=== PATIENT | male | born 1960 | race Caucasian/White ===

== ENCOUNTER 2023-02-21 13:54 | Day surgery (SDC) | payer BC, OTHER ==
[2023-02-20 08:26] VITALS: BMI 42.4
[2023-02-21] MEDS ORDERED: SODIUM CHLORIDE 0.9% 1,000 ML IV ONE (15:15)
[2023-02-21] MEDS ORDERED: fentaNYL (PF) 50 MCG/ML 2 ML AMP ONE (15:27)
[2023-02-21] MEDS ORDERED: MIDAZOLAM 2 MG/2 ML VIAL ONE (15:27)
[2023-02-21] MEDS ORDERED: ISOPROTERENOL 250 MCG/1.25 ML SYR IV ONE (15:27)
[2023-02-21] MEDS ORDERED: HEPARIN SODIUM (1,000 UNIT/ML) 1,000 UNIT in SODIUM CHLORIDE 0.9% 1,000 ML IRRIGATION ONE (15:35)
[2023-02-21] MEDS ORDERED: LIDOCAINE 1% INJ 10MG/ML (30 ML VIAL-PF) SQ ONE ×2 (15:55)
[2023-02-21] MEDS ORDERED: LIDOCAINE 1% INJ 10MG/ML (20 ML MDV) ONE (16:28)
[2023-02-21] MEDS ORDERED: LIDOCAINE 1% INJ 10MG/ML (20 ML MDV) SQ ONE (16:34)
[2023-02-21] MEDS ORDERED: ACETAMINOPHEN TAB 325 MG TAB PO PRN (18:32)
[2023-02-21] MEDS ORDERED: ACETAMINOPHEN IV (For NPO) 1,000 MG in EMPTY BAG 1 BAG IVPB ONE (18:32)
--- NOTE | 2023-02-21 18:39 | P.EPPROC ---
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 Written informed consent was obtained prior to the procedure. The right and left groins were prepped and draped as a protocol. 1% lidocaine was used for local anesthesia. Venous sheaths were placed in the right left femoral veins. Diagnostic catheters were positioned in the high right atrium, His bundle area right ventricle and coronary sinus Diagnostic EP study performed. Sinus cycle length 10/23/2008 milliseconds, MS interval 166 ms, QRS 110 ms and QT 489 ms AH 116 ms and HV 58 ms Sinus recovery times at 605 100 ms were 2043 and 1682 ms. Corresponding caretta sinus recovery times were prolonged AV node Wenckebach block for 50 ms VA Wenckebach block 390 ms Parahisian pacing revealed tammie response SVT was induced and pacing from the high right atrium at 400 ms Short septal times of less than 40 ms VAAV response noted with a long PPI consistent with AV tammie reentry 3-D electro-anatomic mapping was performed. An irrigated tip catheter was used the His bundle was tagged, coronary sinus os was tagged along with the floor and the roof The slow pathway was mapped This was a long procedure. RF ablations around the coronary sinus os resulted in slow junctional rhythm. However despite successful ablation of the sites just outside the coronary sinus os to the floor, and junctional rhythm obtained during thermal delivery, the slow pathway persisted and AV tammie reentry was very easily inducible This was a long procedure and stepwise ablation was performed off the coronary sinus os anteriorly, just outside the coronary sinus anteriorly, along the floor of the coronary sinus and finally in the roof of the coronary sinus At all sites close to the coronary sinus slow junctional rhythm was obtained but the patient continued to have tachycardia until the roof was also ablated and thereafter he did not have any further inducible AV tammie reentry He was then tested on high-dose Isuprel from multiple sites with straight pacing burst pacing and extra stimulation after double extra stimuli On high-dose Isuprel only single echo beats were noted without induction of SVT His MS interval remained stable He tolerated the procedure well without any acute complications Groins venous punctures was sealed with Vascade
--- NOTE | 2023-02-21 18:41 | P.PRLE ---
RE: Gasper Salinas Dear Margie Salinas underwent a diagnostic EP study and successful ablation of the slow pathway for the treatment of AV tammie reentry Hopefully he has no further episodes of SVT. He tolerated the procedure well and was noninducible at the end of the procedure Thank you for entrusting me with the care of the patient Warm regards Sincerely Valentin Mae
[2023-02-21] MEDS ORDERED: ASPIRIN 81 MG PO SCH (21:00)
--- NOTE | 2023-02-22 08:03 | P.DS ---
Providers Attending physician: Valentin Mae Primary care physician: Jn Mota [place] Hospital Course: Patient is doing well. No chest discomfort dizziness lightheadedness Mild tenderness in both groin but no hematoma no swelling On examination blood pressure 108/70. His mercury pulse rate in the 50s afebrile Normal heart sounds normal S1 normal S2 no murmurs or gallops Impression Recurrent SVT, AV tammie reentry Diagnostic EP study revealed AV tammie reentry Successful ablation of the slow pathway rendering the SVT noninducible In order to eliminate the SVT and rendered noninducible both the fluoroscopy of the coronary sinus, just outside the office as well as the roof of the coronary sinus had to be ablated Every site produced slow junctional rhythm in response to RF and yet it took stepwise ablation of both these sites to eliminate SVT Patient tolerated the procedure well without any acute complications Plan Discharge home today the patient is stable and likely will follow-up with Dr. Esparza in a week to 10 days Plan - Discharge Summary New Discharge Prescriptions: Continue RX: Vitamin C/Biotin [Hair, Skin and Nails Chew] 1 tab PO DAILY RX: Multivitamins, Thera [Multivitamin (formulary)] 1 tab PO DAILY Vitamin B (Unknown Dose) 1 dose PO DAILY Vitamin D (Unknown Dose) 1 dose PO DAILY RX: Aspirin [Adult Low Dose Aspirin EC] 81 mg PO HS Discharge Medication List RX: Aspirin [Adult Low Dose Aspirin EC] 81 mg PO HS 02/20/23 [History] RX: Multivitamins, Thera [Multivitamin (formulary)] 1 tab PO DAILY 02/20/23 [History] RX: Vitamin C/Biotin [Hair, Skin and Nails Chew] 1 tab PO DAILY 02/20/23 [History] Vitamin B (Unknown Dose) 1 dose PO DAILY 02/20/23 [History] Vitamin D (Unknown Dose) 1 dose PO DAILY 02/20/23 [History] Follow up Appointment(s)/Referral(s): Ethan Esparza MD [STAFF PHYSICIAN] - 1 Week Activity/Diet/Wound Care/Special Instructions: Post EP study - Ablation instructions 1. Keep access sites dry for 2 days. 2. No heavy lifting or straining for 2 days. 3. Avoid bending the hips repeatedly for 2 days. 4. You may go up and down stairs slowly Call if the following is noted 1. Bleeding, increasing swelling or pain at the access sites. 2. Increasing chest discomfort, especially upon taking a deep breath. 3. Increasing shortness of breath, at rest or with exertion. 4. Undue cough / phlegm 5. Difficulty or pain while swallowing. 6. Pain or change in color in the extremities. 7. Fever, chills, rigors. 8. Increasing headache or neurologic symptoms. 9. Dizziness, fainting, palpitations Discharge Disposition: HOME SELF-CARE
[2023-02-22 08:10] VITALS: RESP 18
[2023-02-22 09:07] VITALS: BP 142/81; PULSE 56; TEMP 98.5
== END 2023-02-22 10:55 | disposition home or self-care (01) ==
LOC: CATHEP 13:54 → 6NMEDSUR 18:09 → CATHEP 02-22 10:55
PROVIDERS: ATTEND Internal Medicine Clinical Cardiac Electrophysiology
DX: I47.1 Supraventricular tachycardia (principal); I44.1 Atrioventricular block, second degree; F10.90 Alcohol use, unspecified, uncomplicated; Z87.891 Personal history of nicotine dependence; Z79.82 Long term (current) use of aspirin
CPT/HCPCS: 93653; 93623; C1894; C1769; C1760; C1730 ×3; C1893; C1732; J2250; J2001 ×2; J3010; J1644